=== PATIENT | female | born 1980 | race Two or more races ===

== ENCOUNTER 2017-02-01 17:56 | Emergency (ER) | payer MEDICAID ==
[~2017-02-01] VITALS: Ht 160 cm; Wt 95.3 kg
[2017-02-01 18:01] VITALS: BP 159/104
[2017-02-01] MEDS ORDERED: IBUPROFEN600 MG ORAL (18:41)
[2017-02-01] MEDS ORDERED: NORCO 5-325 TA1 EAC1 ORAL (18:41)
[2017-02-01] MEDS ORDERED: Norco 5mg/325mg tab ORAL ONE (18:45)
[2017-02-01] MEDS ORDERED: Ketorolac 30mg Inj IM ONE (18:45)
[2017-02-01 19:05] VITALS: BP 159/104
--- NOTE | 2017-02-02 14:46 | Emergency Room Report ---
History of Present Illness General Chief Complaint: Pain Source: Patient Present Illness HPI 36-year-old female presents to ED complaining of back pain. Patient is having back pain for the last 4 months. Pain is sharp. 10 out of 10. Radiating down left leg. Denies recent trauma. Patient notes history of sciatica. States that she's been trying to treated with acupuncture but states it is not helping. Patient is only taking naproxen for the pain. Denies any leg or weakness. Denies any bowel or bladder incontinence. No other aggravating or relieving factors. Denies any other associated symptoms Allergies: Coded Allergies: No Known Allergies (Unverified , 02/01/17) Patient History Past Medical History: none Past Surgical History: none Pertinent Family History: none Social History: Denies: alcohol use, drug use, smoking Now: No Immunizations: UTD Reviewed Nursing Documentation: PMH: Agreed, PSxH: Agreed Nursing Documentation-PMH Past Medical History: No Stated History Review of Systems All Other Systems: negative except mentioned in HPI Physical Exam Vital Signs Date Time Temp Pulse Resp B/P Pulse Ox O2 Delivery O2 Flow Rate FiO2 02/01/17 18:01 98.1 104 20 159/104 98 Room Air Sp02 EP Interpretation: reviewed, normal General Appearance: no apparent distress, alert, GCS 15, non-toxic Head: normocephalic Eyes: bilateral eye PERRL, bilateral eye normal inspection ENT: normal ENT inspection Neck: normal inspection Respiratory: normal inspection Cardiovascular #1: normal inspection Gastrointestinal: normal inspection Rectal: deferred Genitourinary: no CVA tenderness Musculoskeletal: tender - paraspinal lumbar tenderness Neurologic: alert, oriented x3, responsive, motor strength/tone normal, sensory intact, speech normal Psychiatric: normal inspection Skin: normal inspection Lymphatic: normal inspection Medical Decision Making Diagnostic Impression: Primary Impression: Sciatica of left side ER Course Hospital Course 36-year-old female presents ED complaining of lower back pain. No evidence of trauma Differential diagnoses include: pyelonephritis, kidney stone, muscle strain, Lspine fracture Clinical course Patient placed on stretcher. After initial history, physical exam reveals a young female in no acute distress. Patient is walking with steady gait. 5 out of 5 motor strength in bilateral legs. Sensations intact. There is no vertebral body tenderness there is some or spinal left-sided tenderness radiating down the left leg. I ordered toradol and [place] for pain. Upon reassessment patient states pain has improved. Upon review of CURES HAS not currently taking any narcotic medications Patient states her transit planner recommended against physical therapy and surgery. I tell the patient that an transit planner is not a physician I cannot provide any basis for her recommendations. I can only recommend proven medical therapies States she will followup with her PMD for physical therapy and to see a back surgeon Diagnosis - sciatica on left side Stable and discharged to home with prescription for Motrin, [place]. Followup with PMD. Return to ED if symptoms recur or worsen Last Vital Signs Date Time Temp Pulse Resp B/P Pulse Ox O2 Delivery O2 Flow Rate FiO2 02/01/17 19:05 98.1 104 20 159/104 98 Room Air Status: improved Disposition: HOME, SELF-CARE Condition: Stable Scripts Hydrocodone Bit/Acetaminophen 5-325* (NORCO 5-325 TABLET*) 1 Each Tablet 1 TAB ORAL Q4H Y for For Pain, #10 TAB Prov: STEPHEN MCBRIDE M.D. 02/01/17 Ibuprofen* (MOTRIN*) 600 Mg Tablet 600 MG ORAL Q8H Y for For Pain, #30 TAB 0 Refills Prov: STEPHEN MCBRIDE M.D. 02/01/17 Referrals: [facility]ERR[facility] (PCP) Patient Instructions: Sciatica With [facility] STEPHEN MCBRIDE M.D. February 02, 2017 14:46
== END 2017-02-01 19:05 | disposition home or self-care (01) ==
LOC: EMR 18:35
DX: M54.32 Sciatica, left side (principal)
CPT/HCPCS: 96372; 99284; J1885